=== PATIENT | female | born 1975 | race Caucasian/White ===

== ENCOUNTER 2016-12-06 10:02 | Outpatient (CLI) | payer BC ==
--- NOTE | 2016-12-06 12:01 | CT ---
CT CHEST WITH CONTRAST: CT ABDOMEN AND PELVIS WITH CONTRAST: HISTORY: History of breast cancer with intracranial metastatic disease. COMPARISON: 08/28/2016, 05/30/2016, 03/28/2016 TECHNIQUE: Multiple contiguous axial images were obtained in a CT of the chest with contrast. Coronal reformat s were performed. Multiple contiguous axial images were obtained in a CT of the abdomen and pelvis with contrast, and p.o. contrast was administered. Coronal reformats were performed. FINDINGS: CHEST: There is stable scarring in the left lung apex, which likely represents post radiation thera py change. No pulmonary nodules are identified. No pneumothorax or pleural effusion is seen. The heart is normal in size without focal cardiac abnormality. No hilar or mediastinal lymphadenopa thy is seen. The patient has bilateral breast implants. Surgical clips are seen in the left axilla. No enlarged axillary lymph nodes are seen. The bones of the thorax are unremarkable without suspicious osseous lesions. ABDOMEN/PELVIS: The liver, gallbladder, right kidney, adrenal glands, spleen, and pancreas are unre markable. There is a 1.7 cm cyst in the left kidney with posterior dependent calcifications. No fr ee air, free fluid, or stranding changes are seen in the abdomen or pelvis. The large and small bowel are unremarkable. The reproductive organs are unremarkable. No abdominal or pelvic lymphadenopathy is seen. The bones of the lumbar spine and pelvis are normal without significant suspicious lesions identifie d. The abdominal wall soft tissues are unremarkable. IMPRESSION: 1. No evidence of intrathoracic metastatic disease. 2. Left apical scarring. 3. No evidence of intraabdominal/pelvic metastatic disease. 4. Stable left renal cyst, containing dependent calcifications. POS: [facility]
--- NOTE | 2016-12-06 15:24 | NM ---
WHOLE BODY BONE SCAN: HISTORY: Malignant neoplasm of central portion of the left inner breast, malignancy neoplasm of brain, unspec ified. RADIOPHARMACEUTICAL: 32 mCi Technetium 99m-MDP injected intravenously. COMPARISON: 09/02/16. FINDINGS: Increased uptake in the shoulders, elbows, wrists, hips, knees, ankles, and feet consistent with deg enerative changes is again seen. No other abnormal areas of tracer localization are seen to suggest metastatic disease. Tracer excretion through the kidneys within normal limits. IMPRESSION: No scintigraphic evidence of osseous metastatic disease. POS: [facility]
[2016-12-06] MEDS ORDERED: Iopamidol 370 76% 100 ML VIAL ONE (16:10)
== END 2016-12-06 10:03 | disposition home or self-care (01) ==
LOC: CT 10:02
PROVIDERS: ATTEND Internal Medicine Hematology & Oncology
DX: C50.919 Malignant neoplasm of unspecified site of unspecified female breast (principal); C71.9 Malignant neoplasm of brain, unspecified; N28.1 Cyst of kidney, acquired
CPT/HCPCS: 71260; 74177; 78306; A9503

== ENCOUNTER 2017-01-16 10:09 | Outpatient (CLI) | payer BC ==
--- NOTE | 2017-01-16 13:44 | MRI ---
PRE AND POST CONTRAST ENHANCED MR IMAGES OF THE BRAIN: Date: 01-16-17 Comparison: 11-06-16 Technique: Multiplanar, multisequence pre and post contrast enhanced MRI images of the brain obtained . The patient received 10 ml of MultiHance given IV. FINDINGS: Images demonstrate previous left posterior fossa craniotomy. Encephalomalacic changes seen in the lef t cerebellum. Some residual areas of enhancement seen along the anterior lateral aspect of the left c erebellum inferiorly. This is unchanged. There is, however, a newly developed area of edema in the left brachium pontis. This area measures 3. 1 x 2.7 cm. There is a newly developed area of focal enhancement in the left brachium pontis measurin g 11 x 10 mm. This is concerning for an acute new lesion in the left brachium pontis compatible with a new metastatic lesion which was not present on numerous previous comparison MRIs. No other intracra nial lesions seen. IMPRESSION: 1. Stable left inferior cerebellar enhancing lesions. 2. Newly developed acute lesion in the left brachium pontis with adjacent areas of edema and central areas of newly developed focal enhancement compatible with a new left posterior fossa mass compatible with the patient's history of metastatic disease. 3. Findings called to Dr. Faith at 11:29 a.m. on 01-16-17. Code CR POS: [facility]
== END 2017-01-16 10:10 | disposition home or self-care (01) ==
LOC: SCSMRI 10:09
PROVIDERS: ATTEND Internal Medicine Hematology & Oncology
DX: C50.919 Malignant neoplasm of unspecified site of unspecified female breast (principal); C71.9 Malignant neoplasm of brain, unspecified; G93.9 Disorder of brain, unspecified
CPT/HCPCS: 70553

== ENCOUNTER 2017-01-16 12:42 | Outpatient (CLI) | payer BC ==
--- NOTE | 2017-01-16 16:28 | NM ---
NUCLEAR MEDICINE MUGA SCAN: 01/16/17 HISTORY: Malignant neoplasm of the central portion of the left female breast. COMPARISON: 08/31/16. Patient was injected with 27.3 millicuries tagged technetium 99m red blood cells intravenously. Ejection fraction equals 81%. This compares to 78% from exam of 08/31/16. IMPRESSION: Ejection fraction equals 81%. POS: [facility]
== END 2017-01-16 12:43 | disposition home or self-care (01) ==
LOC: NM 12:42
PROVIDERS: ATTEND Internal Medicine Hematology & Oncology
DX: Z08 Encounter for follow-up examination after completed treatment for malignant neoplasm (principal); C50.112 Malignant neoplasm of central portion of left female breast
CPT/HCPCS: 70553; 78472; A9604

== ENCOUNTER 2017-01-30 13:59 | Outpatient (CLI) | payer BC ==
--- NOTE | 2017-01-31 09:07 | PET ---
PET CT OF THE BRAIN: HISTORY: A 41-year-old female with left-sided breast cancer diagnosed in December 2012. The patient developed left cerebellar metastasis which was treated with surgical excision and radiation therapy. A new le tenisha has developed on the recent MRI of 01/16/17 in the left brachial pontis. Exam requested to eval uate for radiation necrosis versus metastasis. TECHNIQUE: PET scanning and CT scan of the brain was performed following the intravenous administration of 11.6 mCi [id number] in the right antecubital fossa. Imaging was performed after an uptake int erval of 44 minutes. FINDINGS: Correlation is made with the MRIs of the brain dated 03/18/16 and 11/06/16. There is diffuse hypometabolism in the left cerebellar hemisphere compared to the right. No foci of abnormally increased uptake are seen in the left cerebellar hemisphere to correspond to the lesions s een on the MRI. IMPRESSION: Absence of abnormal fluorodeoxyglucose localization in the lesions noted on the MRI of 01/16/17. POS: [facility]
== END 2017-01-30 14:00 | disposition home or self-care (01) ==
LOC: PET 13:59
PROVIDERS: ATTEND Radiology Radiation Oncology
DX: C50.919 Malignant neoplasm of unspecified site of unspecified female breast (principal); C79.31 Secondary malignant neoplasm of brain
CPT/HCPCS: 78815; A9552

== ENCOUNTER 2017-03-08 08:16 | Outpatient (CLI) | payer BC ==
--- NOTE | 2017-03-08 11:04 | MRI ---
BRAIN MRI WITH AND WITHOUT CONTRAST: Date: 03/08/17 COMPARISON: 01/16/17, 11/06/16, 08/10/16, 06/25/16, and 04/13/16. HISTORY: Metastatic breast cancer. TECHNIQUE: Multiplanar, multisequence MR imaging of the brain is obtained with and without contrast. FINDINGS: The gradient echo imaging demonstrates no evidence for intracranial hemorrhage. Arterial flow-voids at axial level of skull base appear grossly unremarkable on the T2-weighted imagi ng. There is partial opacification of the mastoid air cells inferiorly on the right. The paranasal sinuses appear grossly unremarkable. There is abnormal increased T2 signal within the superior and left lateral aspect of the abhi, new wh en compared to 01/16/17 exam. The lateral aspect of the abhi on the left demonstrates increasing T2 a nd FLAIR hyperintensity as well. The middle cerebellar peduncle on the left is expanded and demonstra kajal extensive T2 and FLAIR hyperintensity, progressed medially when compared to the prior examination , extending to the lateral margin of the fourth ventricle. Increased T2 and FLAIR signal is seen throughout the central aspect of the left cerebellar hemisphere , similar when compared to the prior examination. These findings are consistent with progression of edema involving the brainstem and left cerebellar hemisphere. The postcontrast imaging demonstrates a rim enhancing lesion centered within the lateral aspect of th e left middle cerebellar peduncle. This lesion has enlarged since the prior examination performed . On that study, this lesion measured approximately 1.1 x 1.1 x 9.0 mm. On today's study, it marcia sures 1.7 x 1.7 x 1.8 cm. The peripheral enhancing irregular margin demonstrates irregularity. The c entral T2 hyperintense cavity has enlarged and has restricted diffusion, which seems to favor necrosi s over metastatic disease. In addition, there is some linear extension along the inferior and superio r margin of this lesion insinuating within the folia of the cerebellum superiorly and inferiorly. There is a wedge-shaped enhancing lesion within the anterior and lateral aspect of the inferior porti on of the left cerebellar hemisphere, measuring 1.0 cm in AP dimension, similar when compared to the 01/16/17 examination. As seen on multiple prior exams, there is a punctate focus of enhancement withi n the superior aspect of the right cerebellar hemisphere on axial image 80 measuring 3-4 mm, also unc hanged when compared to the prior exam. There is no enhancing lesion within the right cerebellar hemisphere. There is no enhancing lesion located supratentorially. Craniotomy changes in the left posterior fossa posteriorly are stable. IMPRESSION: Since the prior examination, the rim enhancing nonspecific lesion centered in the left middle cerebel lar peduncle has enlarged. Its inferior and superior margins are irregular and somewhat linear, and i t demonstrates surrounding increasing edema which involves the middle cerebellar peduncle and the navid s. The other two enhancing lesions within the left cerebellar hemisphere are unchanged when compared to the prior exam, suggesting 2 stable metastatic foci. The primary considerations for the enlarging lesion is radiation necrosis vs metastatic disease. Rad iation necrosis is slightly favored over a metastatic lesion but there is significant overlap in the imaging appearance of these entities and thus, a MR spectroscopy of this lesion is advised. BETTY Montiel. POS: [facility]
== END 2017-03-08 08:17 | disposition home or self-care (01) ==
LOC: SCSMRI 08:16
PROVIDERS: ATTEND Internal Medicine Hematology & Oncology
DX: C71.9 Malignant neoplasm of brain, unspecified (principal); C50.112 Malignant neoplasm of central portion of left female breast; I67.89 Other cerebrovascular disease
CPT/HCPCS: 70553

== ENCOUNTER 2017-03-16 10:17 | Outpatient (CLI) | payer BC ==
--- NOTE | 2017-03-16 12:04 | CT ---
CT OF THE CHEST WITH CONTRAST CT OF THE ABDOMEN AND PELVIS WITH CONTRAST: COMPARISON: 05/30/16. HISTORY: Left breast cancer with metastatic disease to the brain status post bilateral mastectomy. TECHNIQUE: 1. Multiple contiguous axial images were obtained in a CT of the chest with contrast. Coronal refor mats were performed. 2. Multiple contiguous axial images were obtained in a CT of the abdomen and pelvis with contrast. P.o. contrast was administered. Coronal reformats were performed. FINDINGS: CT CHEST: There is a stable area of scarring in the left lung apex, likely secondary to post-radiation therapy change. No pulmonary nodules are seen in the lungs. No pneumothorax or pleural effusion are seen. The heart is normal in size without focal cardiac abnormality. No hilar or mediastinal lymphadenopat hy are seen. The patient is status post bilateral mastectomies with implant placement. Surgical clips are seen in the left axilla. The bones of the thorax are unremarkable without suspicious osseous lesions. CT ABDOMEN/PELVIS: There is a stable cyst in the left kidney containing 2 calcifications. The liver, gallbladder, right kidney, adrenal glands, spleen, and pancreas are unremarkable. The uterus is retroverted without fo marley abnormality. A dominant follicle is seen in the right ovary measuring 2.0 cm in size. The large and small bowel are unremarkable. The appendix is normal. The abdominal wall soft tissues are unremarkable. No suspicious osseous lesions are seen in the bone s of the pelvis or lumbar spine. IMPRESSION: 1. Stable scaring in the left lung apex secondary to post radiation therapy change. 2. No evidence of intrathoracic metastatic disease. 3. Stable left renal cyst. 4. Physiologic right ovarian follicle. 5. No evidence of intraabdominal/pelvic metastatic disease. POS: [facility]
--- NOTE | 2017-03-16 14:24 | NM ---
WHOLE BODY BONE SCAN: HISTORY: History of left breast cancer with intracranial metastatic disease. COMPARISON: 12/06/2016 TECHNIQUE: A whole body bone scan was performed after the administration of 30.3 millicuries of technetium 99m M DP. FINDINGS: Soft tissue activity is normal. Physiologic activity is seen within the skeleton. No areas of incre ased or decreased uptake of radiopharmaceutical are seen to suggest osseous metastatic disease. IMPRESSION: No evidence of osseous metastatic disease. POS: [facility]
[2017-03-16] MEDS ORDERED: Iopamidol 370 76% 100 ML VIAL ONE (16:40)
== END 2017-03-16 10:18 | disposition home or self-care (01) ==
LOC: CT 10:17
PROVIDERS: ATTEND Internal Medicine Hematology & Oncology
DX: C50.919 Malignant neoplasm of unspecified site of unspecified female breast (principal); N28.1 Cyst of kidney, acquired
CPT/HCPCS: 71260; 74177; 78306; A9503

== ENCOUNTER 2017-03-22 12:02 | Outpatient (CLI) | payer BC ==
--- NOTE | 2017-03-22 15:20 | PET ---
NUCLEAR MEDICINE PET CT OF BRAIN: Date: 03/22/17 HISTORY: 41-year-old female with metastatic breast cancer. Enlarging rim enhancing lesion in left middle cereb ellar peduncle on most recent MRI of 03/08/17, compared to prior MRI of 01/16/17. TECHNIQUE: 10.4 mCi of F18-FDG. PET scan and attenuation correction CT of brain. COMPARISON: Brain PET study of 01/30/17, and MRIs of 01/16/17 and 03/08/17. FINDINGS: Again noted is the photopenic defect with significantly decreased FDG uptake throughout the left cere bellar hemisphere compared to the normal right side. Some of this represents postsurgical changes, wh ile much of it probably represents post radiation changes. There is no focus of increased FDG uptake in the left middle cerebellar peduncle (brachium pontis) lesion to correspond to the enlarging rim en hancing lesion on MRI. There is no interval change overall in the entire brain PET study compared to 01/30/17. IMPRESSION: 1. The enlarging rim enhancing lesion in the left middle cerebellar peduncle continues to be PET-neg arive (not FDG-avid). 2. While PET scan is very accurate for distinguishing primary astrocytoma/glioblastoma from radiatio n necrosis, not all cases of intracranial metastases are PET positive, according to the literature. T herefore, although the growing mass could represent radiation necrosis, an enlarging metastatic lesio n is not completely excluded. MR spectroscopy should be considered. POS: [facility]
== END 2017-03-22 12:03 | disposition home or self-care (01) ==
LOC: PET 12:02
PROVIDERS: ATTEND Surgery
DX: C79.31 Secondary malignant neoplasm of brain (principal)
CPT/HCPCS: 78608; A9552

== ENCOUNTER 2017-06-07 08:56 | Outpatient (CLI) | payer BC ==
[2017-06-07] MEDS ORDERED: Gadobenate Dimeglumine 529 MG/1 ML (20ML VIAL) ONE (09:00)
--- NOTE | 2017-06-07 10:50 | MRI ---
MRI OF THE BRAIN WITHOUT AND WITH CONTRAST: Comparison: 03-08-17, 08-10-16 History: Breast cancer with metastatic disease to the cerebellum. Status post resection and radiation therapy. Patient had an abnormal area of enhancement in the left cerebellum which was enlarging on p rior exams and was worked up. 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 Technique: Multiplanar, multisequence MR images were obtained of the brain without and with IV contra st. FINDINGS: There is encephalomalacia in the right left cerebellar hemisphere from prior surgery. The lateral enh ancing lesion along the sigmoid sinus is measures 6 mm in width and 10 mm in length. The lesion more anterior near the middle cerebellar peduncle has decreased in size compared to the prior examination and now measures 1.3 x 1.7 x 0.9 cm in size. The rim of enhancement is not as thick as it was on the prior examination. The edema surrounding this lesion has significantly decreased compared to the prio r examination. There is less edema in the cerebellar hemisphere and less edema within the abhi. No new areas of enhancement are seen within the brain. There is no evidence of hydrocephalus, intracr anial hemorrhage or extraaxial fluid collection. The expected flow voids are present. The corpus call osum and pituitary are unremarkable. There is fluid within the right mastoid air cells. There is mild mucosal thickening in the paranasal sinuses. IMPRESSION: 1. Decreased size of left cerebellar anterior lesion and decreased edema. 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 2. The lateral lesion in the cerebellar hemisphere measures slightly larger on today's examination. T his could represent difference in slice selection. This lesion is grossly stable when compared to [facility] prior MRIs. POS: [facility]
== END 2017-06-07 08:57 | disposition home or self-care (01) ==
LOC: SCSMRI 08:56
PROVIDERS: ATTEND Surgery
DX: C79.31 Secondary malignant neoplasm of brain (principal); G93.9 Disorder of brain, unspecified; G93.6 Cerebral edema
CPT/HCPCS: 70553; A9579

== ENCOUNTER 2017-06-29 10:57 | Outpatient (CLI) | payer BC ==
--- NOTE | 2017-06-29 13:21 | NM ---
MUGA SCAN: Date: 06/29/17 HISTORY: Malignant neoplasm of central portion of left female breast. RADIOPHARMACEUTICAL: 25 mCi technetium 99m labeled RBCs injected intravenously. COMPARISON: 01/16/17. FINDINGS: Left ventricular ejection fraction measures 74% (previously 81% on 01/16/17). The wall motion is norm al. IMPRESSION: LVEF is 74%. POS: [facility]
== END 2017-06-29 10:58 | disposition home or self-care (01) ==
LOC: NM 10:57
PROVIDERS: ATTEND Internal Medicine Hematology & Oncology
DX: C50.919 Malignant neoplasm of unspecified site of unspecified female breast (principal)
CPT/HCPCS: 78472; A9604

== ENCOUNTER 2017-07-02 09:03 | Outpatient (CLI) | payer BC ==
[~2017-07-02 09:03] MED LIST: Iopamidol 370 76% 100 ML VIAL ONE
--- NOTE | 2017-07-02 11:39 | CT ---
CHEST AND ABDOMEN AND PELVIC CT SCAN WITH IV CONTRAST: Date: 07/02/17 HISTORY: 42-year-old female with history of malignant neoplasm of breast, with brain metastasis, with chemothe rapy and radiation. COMPARISON: 03/16/17. FINDINGS: Post radiation scarring in the left upper lobe. No mediastinal mass or adenopathy. No pleural effusio n or pericardial effusion, or other acute process in the chest. Liver, gallbladder, pancreas, spleen, and adrenal glands are unremarkable. There is a stable left rod al cyst with some calcification within the wall. 2.0 cm diameter left ovarian follicle cyst. Normal a ppearing appendix. No evidence of adenopathy, abscess, or abnormal fluid collection within the abdome n or pelvis. IMPRESSION: No evidence of metastatic disease. Post radiation scarring in the left upper lobe. Stable left renal cyst. Small left ovarian follicle cyst. POS: [facility]
--- NOTE | 2017-07-02 14:52 | NM ---
WHOLE BODY BONE SCAN: History: 42-year-old female with history of malignant neoplasm of central portion of the left female breast. Comparison: 03-16-17 FINDINGS: No evidence for significant abnormal or altered isogenesis. There is bilateral renal and bladder acti vity. Stable appearance from prior study. IMPRESSION: No evidence of metastasis. Stable from prior study. POS: [facility]
== END 2017-07-02 09:04 | disposition home or self-care (01) ==
LOC: CT 09:03
PROVIDERS: ATTEND Internal Medicine Hematology & Oncology
DX: C50.919 Malignant neoplasm of unspecified site of unspecified female breast (principal); N28.1 Cyst of kidney, acquired; N83.02 Follicular cyst of left ovary; J98.4 Other disorders of lung
CPT/HCPCS: 71260; 74177; 78306; A9503

== ENCOUNTER 2017-09-27 09:11 | Outpatient (CLI) | payer BC ==
[~2017-09-27 09:11] MED LIST changes: +Gadobenate Dimeglumine 529 MG/1 ML (20ML VIAL) ONE; -Iopamidol 370 76% 100 ML VIAL ONE
--- NOTE | 2017-09-27 12:40 | MRI ---
MRI BRAIN WITH AND WITHOUT CONTRAST: CLINICAL HISTORY: Neoplasm of brain. History of breast cancer with cerebellar lesions. Follow-up imaging. COMPARISON: Reference made to prior brain MRIs from 06/07/2017 and 03/08/2017. FINDINGS: Redemonstration of a rim-enhancing lesion of the lateral aspect of the left middle cerebellar peduncl e, extending into the left cerebellar parenchyma, which is grossly stable in volume. The bulk of the enhancing lesion remains at approximately 16 mm craniocaudal, with stable, inferiorly located, punct ate, enhancing nodularity. AP diameter is approximately 10 mm, and transverse diameter is approximat yoandy 11 mm. An additional enhancing lesion located at the lateral aspect of the left cerebellar hemis phere measures approximately 11 mm AP x 5 mm transverse x 10 mm craniocaudal, grossly stable. No new , enhancing intraaxial lesion is demonstrated. IMPRESSION: Stable enhancing lesions of the left posterior fossa, as described above. Recommend continued imagin g surveillance in three to four months, to document continued stability. POS: [facility]
== END 2017-09-27 09:12 | disposition home or self-care (01) ==
LOC: SCSMRI 09:11
PROVIDERS: ATTEND Internal Medicine Hematology & Oncology
DX: C50.919 Malignant neoplasm of unspecified site of unspecified female breast (principal); C71.9 Malignant neoplasm of brain, unspecified; G93.89 Other specified disorders of brain
CPT/HCPCS: 70553; A9579

== ENCOUNTER 2017-11-26 12:30 | Outpatient (CLI) | payer BC | END 2017-11-26 12:31 | disposition home or self-care (01) | LOC: NM 12:30 | PROVIDERS: ATTEND Internal Medicine Hematology & Oncology | DX: C50.112 Malignant neoplasm of central portion of left female breast (principal) | CPT/HCPCS: 78472; A9604 ==

== ENCOUNTER 2018-01-28 09:00 | Outpatient (CLI) | payer BC ==
--- NOTE | 2018-01-28 12:21 | MRI ---
MRI OF THE BRAIN WITHOUT AND WITH COTNRAST: COMPARISON: 09/27/2017, 06/07/17, 03/08/2017. HISTORY: Breast cancer with metastatic disease to the left cerebellar hemisphere. The patient had radiation t herapy for an abnormal area of enhancement suspicious for recurrent disease. There was subsequently an area of abnormal enhancement in the left posterior fossa which is felt to represent radiation necr osis. TECHNIQUE: Multiplanar, multisequence MR images were obtained of the brain without and with IV contrast. FINDINGS: There are 2 abnormal areas of enhancement in the left posterior cranial fossa. One of these areas is seen adjacent to the sigmoid sinus and is stable in size measuring approximately 10 mm in greatest d imension. Encephalomalacia is seen in the left cerebellar hemisphere. More anteriorly in the left c erebellar hemisphere, there is an area of abnormal enhancement. This is stable in size compared to t he prior examination measuring 1.6 x 1.4 x 0.8 cm in size. Since the prior examination, there is con tinued loss of the central area of nonenhancement with fill-in of the area of enhancement. No new ar eas of enhancement are seen in the brain. There is no evidence of hydrocephalus, intracranial hemorrhage, or extraaxial fluid collection. The corpus callosum, pituitary, and craniocervical junction are unremarkable. Postsurgical changes are seen in the left posterior calvarium. The scalp soft tissues are unremarkab le. The paranasal sinuses are well aerated. IMPRESSION: Two stable areas of enhancement in the left posterior fossa/cerebellum. Continued followup is recomm ended to ensure continued stability. Differential considerations still include radiation necrosis an d potential recurrent disease. POS: [facility]
== END 2018-01-28 09:01 | disposition home or self-care (01) ==
LOC: SCSMRI 09:00
PROVIDERS: ATTEND Internal Medicine Hematology & Oncology
DX: C50.919 Malignant neoplasm of unspecified site of unspecified female breast (principal); C71.9 Malignant neoplasm of brain, unspecified
CPT/HCPCS: 70553; A9579

== ENCOUNTER 2018-01-30 08:59 | Outpatient (CLI) | payer BC ==
--- NOTE | 2018-01-30 10:07 | CT ---
CT OF THE CHEST WITH CONTRAST CT OF THE ABDOMEN AND PELVIS WITH CONTRAST: Comparison: 10-16-17 History: Breast cancer with metastatic disease to the brain. Evaluate for other widespread metastatic disease. Technique: 1. Multiple contiguous axial images were obtained in a CT of the chest with contrast. Coronal reforma ts were performed. 2. Multiple contiguous axial images were obtained in a CT of the abdomen and pelvis with contrast. PO contrast was administered. Coronal reformats were performed. FINDINGS: CT CHEST: There is stable scarring in the left lung apex, likely secondary to post radiation therapy change. No suspicious pulmonary nodules are identified. No pneumothorax or pleural effusion are seen. Bilateral breast implants. Surgical clips are seen in the left axillary region. The bones of the thorax are un remarkable. CT ABDOMEN/PELVIS: The patient has a stable left renal cyst with dependent calcifications in the posterior aspect of the cysts. The liver, gallbladder, right kidney, adrenal glands, spleen, and pancreas are unremarkable. No free air, free fluid, or stranding changes are seen in the abdomen or pelvis. The reproductive organs are unremarkable. The large and small bowel are unremarkable. No abdominal or pelvic lymphadenopathy are seen. The bones of the pelvis and lumbar spine are unremarkable. IMPRESSION: 1. No evidence of intrathoracic metastatic disease. 2. No evidence of intraabdominal/pelvic metastatic disease. 3. Stable scarring in the left lung apex. 4. Stable left renal cyst. POS: [facility]
[2018-01-30] MEDS ORDERED: Iopamidol 370 76% 100 ML VIAL ONE (10:39)
--- NOTE | 2018-01-30 15:11 | NM ---
WHOLE BODY BONE SCAN: Date: 01/30/18 COMPARISON: 10/16/17. HISTORY: Left breast cancer with intracranial metastatic disease. TECHNIQUE: A whole body bone scan was performed after administration of 33 mCi technetium-99m MDP. FINDINGS: Normal uptake of the radiopharmaceutical is seen throughout the skeleton. No suspicious areas of incr eased or decreased uptake of the radiopharmaceutical are seen. IMPRESSION: No evidence of osseous metastatic disease. POS: [facility]
== END 2018-01-30 09:00 | disposition home or self-care (01) ==
LOC: CT 08:59
PROVIDERS: ATTEND Internal Medicine Hematology & Oncology
DX: C50.912 Malignant neoplasm of unspecified site of left female breast (principal); C79.31 Secondary malignant neoplasm of brain; J98.4 Other disorders of lung; N28.1 Cyst of kidney, acquired
CPT/HCPCS: 71260; 74177; 78306; A9503

== ENCOUNTER 2018-05-14 12:38 | Outpatient (CLI) | payer BC ==
--- NOTE | 2018-05-14 15:30 | NM ---
NUCLEAR MEDICINE MUGA SCAN: HISTORY: Malignant neoplasm. Evaluate ejection fraction. COMPARISON: None. TECHNIQUE: The patient was administered 27 mCi of Technetium 99m tagged red blood cells intravenously. Imaging was performed in the anterior, left lateral, and WELSH position. FINDINGS: There is a 74.1% ejection fraction. IMPRESSION: A 74.1% ejection fraction. POS: [facility]
== END 2018-05-14 12:39 | disposition home or self-care (01) ==
LOC: NM 12:38
PROVIDERS: ATTEND Internal Medicine Hematology & Oncology
DX: C50.919 Malignant neoplasm of unspecified site of unspecified female breast (principal)
CPT/HCPCS: 78472; A9604

== ENCOUNTER 2018-06-10 08:28 | Outpatient (CLI) | payer BC ==
[2018-06-10] MEDS ORDERED: Gadobenate Dimeglumine 529 MG/1 ML (20ML VIAL) ONE (09:00)
--- NOTE | 2018-06-10 11:24 | MRI ---
BRAIN MRI WITH AND WITHOUT CONTRAST: Date: 06/10/18 HISTORY: 43-year-old female with history of treated breast malignancy and prior, treated intracranial metastas is. COMPARISON: Reference made to prior brain MRI examinations dated 01/28/18 and 09/27/17. FINDINGS: Redemonstration of two separate foci of enhancing signal abnormality of the left cerebellar hemispher e which are grossly stable in volume, with an intervening region of encephalomalacia and overlying walls rgical change at the left occiput. The bulk of the larger, more superiorly located left cerebellar he mispheric lesion is again measured at approximately 1.5 cm, grossly stable, and the smaller more infe rolaterally located lesion is approximately 1 cm, grossly stable. No new ventriculomegaly, new intracranial mass effect, or midline shift. There are no discrete new pa thologically enhancing intra-axial lesions evident. 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 There is no acute intraparenchymal hemorrhagic susceptibility. No territorial infarction. There is a prominent degree of paranasal sinus opacification of the right maxillary sinus indicated. There is associated mild fluid level and there are multiple, adjacent opacified right ethmoid air sabrina ls, as well as the right frontal sinus. IMPRESSION: 1. Stable left posterior fossa lesions with intervening post treatment signal abnormality of the atr ophic left cerebellar hemisphere. The constellation of findings favor post radiation sequelae. Recomm end continued follow-up as per clinical course. 2. 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 Correlate clinically. POS: [facility]
== END 2018-06-10 08:29 | disposition home or self-care (01) ==
LOC: SCSMRI 08:28
PROVIDERS: ATTEND Internal Medicine Hematology & Oncology
DX: C71.9 Malignant neoplasm of brain, unspecified (principal); C50.112 Malignant neoplasm of central portion of left female breast; G93.89 Other specified disorders of brain
CPT/HCPCS: 70553

== ENCOUNTER 2018-06-12 08:57 | Outpatient (CLI) | payer BC ==
--- NOTE | 2018-06-12 09:56 | CT ---
CONTRAST ENHANCED CT IMAGES OF THE CHEST, ABDOMEN, AND PELVIS: History: History of breast cancer, isolated brain metastases. Date: 06-12-18 Comparison: 01-30-18 FINDINGS: Coronal reconstructed images were performed. CT CHEST: Areas of lung parenchymal scarring seen in the left anterior upper lobe, unchanged since the previous exam. The mediastinum is unremarkable. Bilateral breast reconstructive implants in place. No definite evidence of lung parenchymal masses seen. CT ABDOMEN AND PELVIS: The liver and spleen are unremarkable. The gallbladder and pancreas unremarkable. Adrenal glands and kidneys unremarkable. Areas of scarring seen in the upper pole of the left kidney. Some caliceal dila tation or calculi seen in the left kidney. No evidence of periaortic lymphadenopathy is seen. No evidence of osseous lesions seen. There is interval development of a left adnexal cystic lesion measuring 4.2 x 4.5 x 4.4 cm. This was not present on the previous exam. This may represent a left ovarian cyst or cystic lesion. Further wo rkup using sonography of the pelvis may be of use to further characterize. The right ovary is unremarkable. IMPRESSION: 1. Left ovarian cyst or cystic lesion. This is new and has developed in the interim. 2. No other significant interval changes or abnormalities seen. POS: [facility]
[2018-06-12] MEDS ORDERED: Iopamidol 370 76% 100 ML VIAL ONE (10:33)
--- NOTE | 2018-06-12 13:03 | NM ---
WHOLE BODY BONE SCAN: HISTORY: Malignant neoplasm of the left breast RADIOPHARMACEUTICAL: 32.8 mCi technetium-99m MDP injected intravenously. COMPARISON: 01/30/2018 FINDINGS: No other abnormal areas of tracer localization seen in the skeleton to suggest metastatic disease. Tracer excretion through the kidneys is within normal limits. IMPRESSION: No scintigraphic evidence of osseous metastatic disease.
== END 2018-06-12 08:58 | disposition home or self-care (01) ==
LOC: CT 08:57
PROVIDERS: ATTEND Internal Medicine Hematology & Oncology
DX: C50.919 Malignant neoplasm of unspecified site of unspecified female breast (principal); N83.202 Unspecified ovarian cyst, left side
CPT/HCPCS: 71260; 74177; 78306; A9503; Q9967

== ENCOUNTER 2018-09-19 12:43 | Outpatient (CLI) | payer BC ==
--- NOTE | 2018-09-19 15:06 | NM ---
MUGA SCAN: DATE: 09/19/18 HISTORY: Malignant neoplasm of central portion of left female breast. Encounter for follow-up examination afte r completed treatment for malignant neoplasm. RADIOPHARMACEUTICAL: 27 mCi technetium-99m labeled RBCs injected intravenously. COMPARISON: 05/14/18. FINDINGS: The left ventricular ejection fraction measures 77% (74% on 05/14/18). The wall motion is normal. IMPRESSION: LVEF 77%. POS: [facility]
== END 2018-09-19 12:44 | disposition home or self-care (01) ==
LOC: NM 12:43
PROVIDERS: ATTEND Internal Medicine Hematology & Oncology
DX: C50.112 Malignant neoplasm of central portion of left female breast (principal)
CPT/HCPCS: 78472; A9604

== ENCOUNTER 2018-12-04 08:55 | Outpatient (CLI) | payer BC ==
--- NOTE | 2018-12-04 10:55 | CT ---
CT OF CHEST AND ABDOMEN AND PELVIS PERFORMED WITH INTRAVENOUS CONTRAST ENHANCEMENT: HISTORY: Followup of breast cancer with brain mets. COMPARISON: A 06/13/2018 study. FINDINGS: There is some left apical pleural and parenchymal scarring seen anteriorly which is stable as compare d to the previous study. There are no pulmonary nodules identified. No pleural effusions or infiltr ates. There is no significant mediastinal or hilar adenopathy. Surgical clips are seen in the left axilla and bilateral breast implants are noted. CT OF ABDOMEN PERFORMED WITH CONTRAST ENHANCEMENT: The liver and spleen show no focal abnormalities. The pancreas and gallbladder regions appear unrema rkable. Right and left adrenal glands are normal in appearance. The right and left kidneys are normal in siz e. Two approximately 4 mm calculi associated with a cyst which may represent a calyceal diverticulum are seen in the mid pole of the left kidney. There is no significant paraaortic or mesenteric adeno reji. CT OF PELVIS PERFORMED WITH CONTRAST ENHANCEMENT: A small follicle is seen involving the right adnexa. No free fluid. Review of osseous structures showed no lytic or blastic bony changes. IMPRESSION: 1. Stable overall exam. No evidence of metastatic disease. 2. Pleural-based parenchymal scarring in the left upper lobe. 3. Stable left renal calculi. POS: [facility]
--- NOTE | 2018-12-04 13:02 | NM ---
NM Bone Scan STANDARD: 12/04/2018 10:00 AM CLINICAL INDICATION: Prostate cancer. COMPARISON: None. RADIOPHARMACEUTICAL: 31.2 mCi Tc 99M MDP FINDINGS: Bone lesions: There are no osseous lesions suspicious for metastatic disease. IMPRESSION: No scintigraphic evidence of osseous metastatic disease.
== END 2018-12-04 08:56 | disposition home or self-care (01) ==
LOC: CT 08:55
PROVIDERS: ATTEND Internal Medicine Hematology & Oncology
DX: C50.919 Malignant neoplasm of unspecified site of unspecified female breast (principal); C79.31 Secondary malignant neoplasm of brain; N20.0 Calculus of kidney; J98.4 Other disorders of lung
CPT/HCPCS: 71260; 74177; 78306; A9503

== ENCOUNTER 2019-01-08 10:49 | Outpatient (CLI) | payer BC ==
[~2019-01-08 10:49] MED LIST changes: -Gadobenate Dimeglumine 529 MG/1 ML (20ML VIAL) ONE; +Heparin 1,000 UNITS/ML VIAL ONE
--- NOTE | 2019-01-08 12:39 | NM ---
MUGA SCAN: HISTORY: Malignant neoplasm of the central portion of the left female breast, encounter for follow-up examination after completion of treatment for malignant neoplasm. RADIOPHARMACEUTICAL: 27 mCi technetium 99m labeled RBCs injected intravenously. Comparison: 09/19/2018 FINDINGS: The left ventricular ejection fraction [id number]%. Previous measurement was77%. Wall motion is normal. IMPRESSION: LVEF is 72%.
== END 2019-01-08 10:50 | disposition home or self-care (01) ==
LOC: NM 10:49
PROVIDERS: ATTEND Internal Medicine Hematology & Oncology
DX: Z08 Encounter for follow-up examination after completed treatment for malignant neoplasm (principal); Z85.3 Personal history of malignant neoplasm of breast
CPT/HCPCS: 78472; A9604; J1644

== ENCOUNTER 2019-02-05 08:46 | Outpatient (CLI) | payer BC ==
--- NOTE | 2019-02-05 10:47 | MRI ---
MRI BRAIN WITH AND WITHOUT CONTRAST: HISTORY: Followup. Assess cancer. Radiosurgery three years ago. Breast cancer with intracranial metastases. COMPARISON: 10/02/2018 06/10/2018 FINDINGS: Gradient echo sequence: No hemorrhage. Calvarium: Appropriate T1 marrow signal intensity. Midline brain parenchyma: Unremarkable. Cerebrum: With regard to the cerebrum no parenchymal mass, mass effect or midline shift. Brain volume is age appropriate. Cortical toney-white matter differentiation is preserved. The right cerebellum and cerebellar vermis are unremarkable. There is encephalomalacia and gliosis involving the left cere bellar hemisphere, compatible with previous treatment. Overlying surgical changes of the calvarium are noted. There is essentially stable T2 and FLAIR hyperintensity. Abnormal signal does extend into the left brachium pontis, unchanged. Ventricles: No evidence of hydrocephalus. Sinuses and mastoid air cells: Adequate aeration. Diffusion: Central arterial flow is maintained. Absent restricted diffusion. Postcontrast images:No abnormal enhancement with regards to the cerebrum. Redemonstration of enhancem ent in the anterior aspect of the left cerebellar hemisphere. Currently, this area of enhancement measures 0.8 cm anterior-posterior by 0.7 cm mediolateral by 2.5 cm craniocaudal. Previously this are a of enhancement measured 0.9 cm anterior-posterior by 1.1 cm mediolateral by 2.3 cm craniocaudal. In May 2018 this focus measured 0.9 cm x 0.9 cm x 2.0 cm. There is a second focus of enhancement ad jacent to the left sigmoid sinus, measuring 0.8 cm anterior-posterior by 0.8 cm mediolateral by 1 cm craniocaudal. This lesion is unchanged from May 2018. At that time this lesion measured 0.7 cm x 1.1 cm x 1.1 cm. IMPRESSION: 1. No new areas of enhancement in the cerebrum or cerebellum. 2. Stable areas of enhancement involving the left cerebellar hemisphere. Findings may represent post treatment change. Transcribed Date/Time: 02/05/2019 11:15 AM
== END 2019-02-05 08:47 | disposition home or self-care (01) ==
LOC: SCSMRI 08:46
PROVIDERS: ATTEND Internal Medicine Hematology & Oncology
DX: C50.919 Malignant neoplasm of unspecified site of unspecified female breast (principal); C79.31 Secondary malignant neoplasm of brain
CPT/HCPCS: 70553

== ENCOUNTER 2019-06-18 09:06 | Outpatient (CLI) | payer BC ==
--- NOTE | 2019-06-18 11:38 | CT ---
CT CHEST AND ABDOMEN AND PELVIS WITH IV CONTRAST: DATE: 06/18/2019. PROVIDED CLINICAL HISTORY: Breast cancer. FINDINGS: Comparison 12/04/2018. The heart, pericardium, and great vessels demonstrate a normal CT appearance. There is no evidence f or thoracic lymph node enlargement. Bilateral breast prostheses are redemonstrated. The lungs are f ree of significant opacity. The airway appears patent and of normal caliber. There is no pleural fl uid, pleural thickening, or pneumothorax apparent. There is stable left apical parenchymal scarring. The solid abdominal organs demonstrate a stable CT appearance. Nonobstructing left renal calculi are again seen. No bowel dilatation, inflammatory fat stranding, free fluid, or lymph node enlargement apparent. The osseous structures demonstrate no concerning lytic or blastic lesions. IMPRESSION: No CT evidence for metastatic disease. Stable exam when compared with 12/04/2018. POS: [facility]
--- NOTE | 2019-06-18 12:57 | NM ---
Exam: Nuclear medicine whole body bone scan COMPARISON: 01/30/2018, 06/12/2018, 12/04/2018. HISTORY: Left breast cancer with metastases. TECHNIQUE: Patient was administered 32.60 mCi of technetium 99m MDP intravenously. After appropriate delay, whole body imaging was performed. FINDINGS: Physiologic distribution of radiotracer. Stable degenerative changes involving both shoulde rs and knees. Stable photopenic focus involving the medial right thorax. No evidence of osseous metastases IMPRESSION: No scintigraphic evidence of osseous metastases. Transcribed Date/Time: 06/18/2019 1:10 PM
== END 2019-06-18 09:07 | disposition home or self-care (01) ==
LOC: CT 09:06
PROVIDERS: ATTEND Internal Medicine Hematology & Oncology
DX: C50.919 Malignant neoplasm of unspecified site of unspecified female breast (principal); C79.31 Secondary malignant neoplasm of brain
CPT/HCPCS: 71260; 74177; 78306; A9503

== ENCOUNTER 2019-06-20 09:50 | Outpatient (CLI) | payer BC ==
[2019-06-20] MEDS ORDERED: Magnevist 469MG/ML 20 ML VIAL ONE (10:06)
--- NOTE | 2019-06-20 12:43 | MRI ---
MRI OF THE BRAIN: Date: 06/20/2019 COMPARISON: 02/05/2019. 10/02/2018. TECHNIQUE: Multiplanar, multisequence MR images were obtained of the brain without and with IV contrast. FINDINGS: Postsurgical changes are seen in the calvarium. There is stable high FLAIR signal in the left aspect of the cerebellum. No restricted diffusion is seen on today's examination. There is a stable area of enhancement adjacent to the left sigmoid sinus measuring 0.7 x 0.7 x 0.8 cm in size. There is a stabl e multilobulated area of enhancement in the more anterior aspect of the cerebellum. This measures kaye roximately 2.6 cm in craniocaudal length. The lobulated portion of the superior aspect is stable umer uring 1.1 cm x 0.5 cm in size, and in the more inferior aspect of the lobulated area measures 1.0 cm in greatest dimension. No new areas of enhancement are seen. There is no evidence of hydrocephalus, intracranial hemorrhage, or extra-axial fluid collection. The expected flow-voids are present. The corpus callosum and pituitary are unremarkable. IMPRESSION: Stable areas of enhancement in the left cerebellum. These are favored to represent post radiation the rapy change/necrosis. No new areas of enhancement are seen on today's examination. POS: [facility]
--- NOTE | 2019-06-20 14:39 | NM ---
MUGA SCAN: HISTORY: Malignant neoplasm of central portion of left female breast. RADIOPHARMACEUTICAL: 27.2 mCi Technetium 99m labeled RBCs injected intravenously. FINDINGS: The calculated left ventricular ejection fraction measures 79% (LVEF was 72% on 01/08/2019). The lef t ventricular wall motion is normal. IMPRESSION: Left ventricular ejection fraction estimated at 79%. POS: [facility]
== END 2019-06-20 09:51 | disposition home or self-care (01) ==
LOC: MRI 09:50
PROVIDERS: ATTEND Internal Medicine Hematology & Oncology
DX: Z51.11 Encounter for antineoplastic chemotherapy (principal); C50.919 Malignant neoplasm of unspecified site of unspecified female breast; C71.9 Malignant neoplasm of brain, unspecified
CPT/HCPCS: 70553; 78472; A9579; A9604

== ENCOUNTER 2019-12-10 09:09 | Outpatient (CLI) | payer BC ==
[~2019-12-10 09:09] MED LIST changes: -Heparin 1,000 UNITS/ML VIAL ONE; +Iopamidol 370 76% 100 ML VIAL ONE
--- NOTE | 2019-12-10 11:37 | CT ---
CT CHEST AND ABDOMEN AND PELVIS WITH IV CONTRAST: HISTORY: Breast cancer with brain metastasis. Primary malignant neoplasm of breast, unspecified site. COMPARISON: 06/18/2019. FINDINGS: Bilateral breast implants are again seen. No mediastinal, hilar, axillary, abdominal, or pelvic lymp hadenopathy is identified. No pleural or pericardial effusions or ascites are seen. No pneumoperitoneum is noted. Parenchymal scarring in the left lung apex is redemonstrated. No lung nodules or masses are identifi ed. High-density material in the dependent portions of the gallbladder are again seen. The nonobstructin g calculi and a occasional diverticulum at the mid pole of the left kidney are again seen through the contrast within the diverticulum. The liver, spleen, pancreas, adrenal glands, and right kidney kaye ear normal. There is normal contrast excretion into the ureters and urinary bladder. The small bowel loops are not abnormally dilated. Uterus is present. There is a 1 cm right ovarian cyst. There is no evidence of aneurysmal dilatation of the thoracoabdominal aorta. No osteolytic or osteob lastic lesions are seen. IMPRESSION: Stable exam. No CT evidence of metastatic disease. POS: [facility]
--- NOTE | 2019-12-10 13:10 | NM ---
Whole-body bone scan: 12/10/2019 COMPARISON: 06/18/2019 and prior HISTORY: Breast cancer, assess for metastatic disease TECHNIQUE: Anterior and posterior whole-body imaging obtained following the intravenous administratio n of 31.6 mCi technetium 99m labeled MDP FINDINGS: Physiologic radiotracer activity noted within the urinary bladder and the kidneys. No verte bral body, pelvic, calvarial, rib, or long bone lesions. No scintigraphic evidence of osseous metastatic disease. IMPRESSION: Unremarkable whole body bone scan.
== END 2019-12-10 09:10 | disposition home or self-care (01) ==
LOC: CT 09:09
PROVIDERS: ATTEND Internal Medicine Hematology & Oncology
DX: C50.112 Malignant neoplasm of central portion of left female breast (principal); C79.31 Secondary malignant neoplasm of brain
CPT/HCPCS: 36415; 71260; 74177; 78306; 80053; A9503; Q9967

== ENCOUNTER 2019-12-12 13:02 | Outpatient (CLI) | payer BC ==
[~2019-12-12 13:02] MED LIST changes: +Heparin 1,000 UNITS/ML VIAL ONE; -Iopamidol 370 76% 100 ML VIAL ONE
--- NOTE | 2019-12-12 15:11 | NM ---
MUGA SCAN: HISTORY: Malignant neoplasm of the central portion of the right female breast, encounter for follow-u p examination after completion of treatment for malignant neoplasm. RADIOPHARMACEUTICAL: 30 mCi technetium 99m labeled RBCs injected intravenously. Comparison: 06/20/2019 FINDINGS: The left ventricular ejection fraction [id number]%. Previous measurement was79%. Wall motion is normal. IMPRESSION: LVEF is 79%.
== END 2019-12-12 13:03 | disposition home or self-care (01) ==
LOC: NM 13:02
PROVIDERS: ATTEND Internal Medicine Hematology & Oncology
DX: Z08 Encounter for follow-up examination after completed treatment for malignant neoplasm (principal); Z79.899 Other long term (current) drug therapy; Z85.3 Personal history of malignant neoplasm of breast
CPT/HCPCS: 78472; A9604; J1644

== ENCOUNTER 2020-02-10 12:41 | Day surgery (SDC) | payer BC ==
[2020-02-10 09:27] VITALS: BMI 19.3
[2020-02-10 13:28] VITALS: BP 128/110; TEMP 98.4
--- NOTE | 2020-02-10 14:09 | RAD ---
Lumbar myelogram HISTORY: Breast cancer with leptomeningeal metastases. FINDINGS: After explaining the procedure and answering all questions, the lower back was prepped and draped in usual sterile fashion. Sterile technique, buffered local anesthesia, fluoroscopic guidance, and a posterior L2-3 approach we re used to carefully advance tip of a 20-gauge spinal needle to the thecal sac. Opening CSF pressure 12 cm. A total volume of 10 cc clear CSF was collected in 4 sterile tubes and walls bmitted to pathology. Needle was removed. Patient tolerated the procedure well and was dismissed in good condition. IMPRESSION : Technically successful lumbar puncture. Pathology pending.
== END 2020-02-10 15:00 | disposition home or self-care (01) ==
LOC: RAD 12:41
PROVIDERS: ATTEND Internal Medicine Hematology & Oncology
PROC: 00JU3ZZ Inspection of Spinal Canal, Percutaneous Approach (ICD-10-PCS; principal; 2020-02-10)
DX: C50.112 Malignant neoplasm of central portion of left female breast (principal); C79.49 Secondary malignant neoplasm of other parts of nervous system; Z17.1 Estrogen receptor negative status [ER-]; Z79.899 Other long term (current) drug therapy; Z91.041 Radiographic dye allergy status; Z91.048 Other nonmedicinal substance allergy status
CPT/HCPCS: 62270; 88112

== ENCOUNTER 2020-05-19 08:37 | Outpatient (CLI) | payer BC | END 2020-05-19 08:38 | disposition home or self-care (01) | LOC: MRI 08:37 | PROVIDERS: ATTEND Internal Medicine Hematology & Oncology | DX: C50.919 Malignant neoplasm of unspecified site of unspecified female breast (principal); C79.31 Secondary malignant neoplasm of brain | CPT/HCPCS: 70553 ==

== ENCOUNTER 2021-02-23 10:09 | Outpatient (CLI) | payer BC ==
[2021-02-23] MEDS ORDERED: Iopamidol 370 76% 100 ML VIAL ONE (10:29)
[2021-02-23] MEDS ORDERED: Magnevist 469MG/ML 20 ML VIAL ONE (10:43)
== END 2021-02-23 10:10 | disposition home or self-care (01) ==
LOC: CT 10:09
PROVIDERS: ATTEND Internal Medicine Hematology & Oncology
DX: C79.31 Secondary malignant neoplasm of brain (principal); C50.912 Malignant neoplasm of unspecified site of left female breast; J98.4 Other disorders of lung; R90.89 Other abnormal findings on diagnostic imaging of central nervous system
CPT/HCPCS: 70553; 71260; 74177; 78306; A9503; A9579; Q9967

== ENCOUNTER 2021-03-22 08:32 | Outpatient (CLI) | payer BC | END 2021-03-22 08:33 | disposition home or self-care (01) | LOC: MRI 08:32 | PROVIDERS: ATTEND Internal Medicine Hematology & Oncology | DX: C50.112 Malignant neoplasm of central portion of left female breast (principal); C79.31 Secondary malignant neoplasm of brain | CPT/HCPCS: 70553 ==

== ENCOUNTER 2022-01-30 09:06 | Outpatient (CLI) | payer BC | END 2022-01-30 09:07 | disposition home or self-care (01) | LOC: CT 09:06 | PROVIDERS: ATTEND Internal Medicine Hematology & Oncology | DX: C50.112 Malignant neoplasm of central portion of left female breast (principal); C79.31 Secondary malignant neoplasm of brain; J98.4 Other disorders of lung | CPT/HCPCS: 71260; 74177 ==

== ENCOUNTER 2022-03-27 09:34 | Outpatient (CLI) | payer BC | END 2022-03-27 09:35 | disposition home or self-care (01) | LOC: SCSMRI 09:34 | PROVIDERS: ATTEND Internal Medicine Hematology & Oncology | DX: C50.112 Malignant neoplasm of central portion of left female breast (principal); C79.31 Secondary malignant neoplasm of brain | CPT/HCPCS: 70553 ==

== ENCOUNTER 2022-05-23 09:34 | Outpatient (CLI) | payer BC | END 2022-05-23 09:35 | disposition home or self-care (01) | LOC: SCSMRI 09:34 | PROVIDERS: ATTEND Internal Medicine Hematology & Oncology | DX: C50.112 Malignant neoplasm of central portion of left female breast (principal); C79.31 Secondary malignant neoplasm of brain | CPT/HCPCS: 70553 ==

== ENCOUNTER 2022-06-01 12:37 | Outpatient (CLI) | payer BC | END 2022-06-01 12:38 | disposition home or self-care (01) | LOC: CT 12:37 | PROVIDERS: ATTEND Internal Medicine Hematology & Oncology | DX: C50.112 Malignant neoplasm of central portion of left female breast (principal); C79.31 Secondary malignant neoplasm of brain | CPT/HCPCS: 71260; 74177 ==

== ENCOUNTER 2022-10-23 10:42 | Outpatient (CLI) | payer BC ==
[~2022-10-23 10:42] MED LIST changes: -Heparin 1,000 UNITS/ML VIAL ONE; +Magnevist 469MG/ML 20 ML VIAL ONE
== END 2022-10-23 10:43 | disposition home or self-care (01) ==
LOC: MRI 10:42
PROVIDERS: ATTEND Internal Medicine Hematology & Oncology
DX: C50.112 Malignant neoplasm of central portion of left female breast (principal); C79.31 Secondary malignant neoplasm of brain; Z98.890 Other specified postprocedural states
CPT/HCPCS: 70553; A9579

== ENCOUNTER 2022-12-29 14:03 | Outpatient (CLI) | payer BC | END 2022-12-29 14:04 | disposition home or self-care (01) | LOC: SCSMRI 14:03 | PROVIDERS: ATTEND Internal Medicine Hematology & Oncology | DX: C79.31 Secondary malignant neoplasm of brain (principal); C50.919 Malignant neoplasm of unspecified site of unspecified female breast; G93.9 Disorder of brain, unspecified | CPT/HCPCS: 70553 ==

== ENCOUNTER 2023-03-01 09:00 | Outpatient (CLI) | payer BC | END 2023-03-01 09:01 | disposition home or self-care (01) | LOC: SCSMRI 09:00 | PROVIDERS: ATTEND Internal Medicine Hematology & Oncology | DX: C50.112 Malignant neoplasm of central portion of left female breast (principal); C79.31 Secondary malignant neoplasm of brain | CPT/HCPCS: 70553 ==

== ENCOUNTER 2023-05-23 11:43 | Outpatient (CLI) | payer BC | END 2023-05-23 11:44 | disposition home or self-care (01) | LOC: SCSMRI 11:43 | PROVIDERS: ATTEND Internal Medicine Hematology & Oncology | DX: C79.31 Secondary malignant neoplasm of brain (principal); C50.919 Malignant neoplasm of unspecified site of unspecified female breast; G93.6 Cerebral edema; G93.89 Other specified disorders of brain | CPT/HCPCS: 70553 ==

== ENCOUNTER 2023-08-06 08:11 | Outpatient (CLI) | payer BC ==
[2023-08-06] MEDS ORDERED: Iopamidol 370 76% 100 ML VIAL ONE (10:19)
== END 2023-08-06 08:12 | disposition home or self-care (01) ==
LOC: CT 08:11
PROVIDERS: ATTEND Internal Medicine Hematology & Oncology
DX: C50.919 Malignant neoplasm of unspecified site of unspecified female breast (principal); C79.31 Secondary malignant neoplasm of brain; J98.4 Other disorders of lung
CPT/HCPCS: 71260; 74177